=== PATIENT | female | born 1985 | race Two or more races ===

== ENCOUNTER 2021-02-13 21:27 | Emergency (ER) | payer BC, OTHER ==
[~2021-02-13] VITALS: Ht 165.1 cm; Wt 65.8 kg
[2021-02-13 22:18] LABS: Basophils # (auto) 0.1 10 ^3/uL (0-0.2); Eosinophils # (auto) 0 10 ^3/uL (0-0.8); Hemoglobin 13.2 g/dL (12.2-16.2); Monocytes # (auto) 0.7 10 ^3/uL (0-1.3); Neutrophils # (auto) 5.2 10 ^3/uL (1.6-8.6); Nucleated Red Blood Cells % 0.1 %; White Blood Cell 7.2 10^3/uL (4.4-10.8)
[2021-02-13 22:21] LABS: Eosinophils % (auto) 0.1 % (0.0-7.0); Hematocrit 37.9 % (36.0-46.0); Lymphocytes # (auto) 1.2 10 ^3/uL (0.4-5.4); Lymphocytes % (auto) 16.4 % (10.0-50.0); Mean Corpuscular Hemoglobin 32.5 pg (28.0-32.0); Mean Corpuscular Hgb Conc. 34.9 g/dL (32.0-36.0); Monocytes % (auto) 10.1 % (0.0-12.0); Neutrophils % (auto) 72.4 % (37.0-80.0); Platelet Count (auto) 90 10^3/uL (140-450); Red Blood Cells 4.08 10^6/uL (4.0-5.20); Red Cell Distribution Width 15.1 % (11.8-14.3)
[2021-02-13 22:37] LABS: Albumin 4.3 g/dL (3.4-5.0)
[2021-02-13 22:40] LABS: Bilirubin, Total 1.4 mg/dL (0.2-1.0); Total Protein 8.1 g/dL (6.4-8.2)
[2021-02-13 22:42] LABS: Potassium 2.9 mmol/L (3.5-5.1)
[2021-02-14 00:45] VITALS: BP 145/98
[2021-02-14] MEDS ORDERED: LORazepam 2MG/ML-1ML VIAL IV ONE ×2 (00:45→03:15)
[2021-02-14] MEDS ORDERED: chlordiazePOXIDE HCL 25 MG CAP PO ONE (05:45)
== END 2021-02-14 05:59 | disposition home or self-care (01) ==
LOC: ER 21:31
DX: F10.230 Alcohol dependence with withdrawal, uncomplicated (principal); R11.2 Nausea with vomiting, unspecified
CPT/HCPCS: 36415; 80053; 80185; 84702; 85025; 96374; 96376; 99284; J2060; 96375